=== PATIENT | male | born 1945 | race Native Hawaiian/Other Pacific Islander ===

== ENCOUNTER 2017-03-15 17:53 | Emergency (ER) | payer OTHER, MEDICARE ==
[~2017-03-15] VITALS: Ht 177.8 cm; Wt 104.6 kg
[2017-03-15 18:22] LABS: PLATELET COUNT 200 K/uL (142-355)
[2017-03-15 18:41] LABS: POTASSIUM 3.8 mmol/L (3.6-5.2); SODIUM 136 mmol/L (136-145)
== END 2017-03-15 19:40 | disposition home or self-care (01) ==
LOC: ED 17:53
DX: S50.02XA Contusion of left elbow, initial encounter (principal); S50.01XA Contusion of right elbow, initial encounter; S00.03XA Contusion of scalp, initial encounter; W18.39XA Other fall on same level, initial encounter; Y92.098 Other place in other non-institutional residence as the place of occurrence of the external cause
CPT/HCPCS: 80053; 85027; 99283